=== PATIENT | female | born 1955 | race Caucasian/White ===

== ENCOUNTER → 2018-03-13 07:30 | Outpatient (CLI) | payer OTHER, SELFPAY ==
[2018-03-13 08:13] LABS: Add Manual Diff / Slide Review NO; Basophils Percent Auto 0.9 % (0-2); Eosinophils Percent Auto 4.2 % (2-4); Hematocrit 40.8 % (36-46); Hemoglobin 14.4 g/dL (12.0-16.0); Lymphocytes Percent Auto 29.7 % (25-40); Mean Corpuscular HGB Conc 35.4 % (30-36); Mean Corpuscular Hemoglobin 32.4 PG (26-34); Mean Corpuscular Volume 91.7 fL (80-100); Monocytes Percent Auto 8.2 % (3-14); Neutrophils Absolute Auto 3900 /uL (3000-5900); Platelet Count 284 X10^3/uL (150-400); Red Blood Cell Count 4.45 X10^6/uL (4.0-5.2); Red Cell Distribution Width 13.4 % (11.6-14.8); White Blood Cell Count 6.8 X10^3/uL (4.5-11.0)
[2018-03-13 08:30] LABS: Alanine Aminotransferase 33 IU/L (9-52); Albumin 4.3 g/dL (3.5-5.0); Albumin Globulin Ratio 1.3 (1.0-2.8); Alkaline Phosphatase 47 U/L (38-126); Aspartate Aminotransferase 26 IU/L (14-36); BUN Creatinine Ratio 28.6 (6-22); Bilirubin Total 0.8 mg/dL (0.2-1.3); Blood Urea Nitrogen 20 mg/dL (7-17); Calcium 9.5 mg/dL (8.4-10.2); Carbon Dioxide 28 mmol/L (22-32); Chloride 101 mmol/L (98-107); Cholesterol 241 mg/dL (140-199); Estimated Glomerular Filt Rate > 60.0 mL/min (>60); Globulin 3.2 g/dL (1.7-4.1); Glucose 96 mg/dL (80-110); HDL Cholesterol 58 mg/dL (40-60); HEMOLYSIS < 15 (0-50); LDL Cholesterol Calculated 157 mg/dL (<100); Potassium 4.2 mmol/L (3.4-5.1); Sodium 137 mmol/L (137-145); Total Protein 7.5 g/dL (6.3-8.2); Triglycerides 130 mg/dL (35-150)
== END ==
PROVIDERS: PCP Physician Assistant; Visit Provider Physician Assistant
DX: E03.9 Hypothyroidism, unspecified (principal); I10 Essential (primary) hypertension; E78.5 Hyperlipidemia, unspecified
CPT/HCPCS: 36415; 80053; 80061; 84443; 85025

== ENCOUNTER → 2018-07-08 17:56 | Outpatient (CLI) | payer OTHER, SELFPAY ==
--- NOTE | 2018-07-08 17:59 | DI.MRI.S_ITS ---
PROCEDURE: MR HAND RT WO CON INDICATIONS: Palpable lump in the 3rd digit of the right hand. TECHNIQUE: Noncontrast coronal T1 spin echo and T2 fast spin echo with fat saturation, axial proton density fast spin echo and T2 fast spin echo with fat saturation, sagittal T1 spin echo and STIR through the hand and fingers. COMPARISON: None. FINDINGS: Image quality: There is heterogeneous fat saturation. Bones: Visualized osseous structures demonstrate normal overall bone marrow signal. The bones are normally aligned, without marrow contusions or fractures. No discrete bony erosions. No joint effusions. Soft tissues: Within the dorsal aspect of the proximal 3rd digit, there is a lobulated subcutaneous soft tissue mass demonstrating T1 hypointensity and T2 hyperintensity. This measures approximately 2.3 cm in longitudinal dimension by 2.5 x 1.0 cm in transverse dimension. There are small internal linear septations. The mass is contiguous with the extensor tendon which appears attenuated at the level of the mass. There is displacement of adjacent vascular structures. Slightly prominent feeding vessels are noted. Visualized muscles demonstrate normal bulk and internal signal. IMPRESSION: 1. Lobulated subcutaneous soft tissue mass demonstrated dorsally and in the proximal 3rd digit. Given its T2 hyperintensity, the finding is suggestive of a hemangioma. The differential also includes a ganglion cyst although this is less likely given the mildly prominent feeding vessels. Given its location in association with the extensor tendon, the differential also includes a giant cell tumor of the tendon sheath although this is also less likely given the T2 hyperintensity. Consider further evaluation with contrast-enhanced images for further characterization. 2. No definite evidence of bony invasion. Dictated by: Keith Raymundo M.D. on 07/09/2018 at 9:20 Approved by: Keith Raymundo M.D. on 07/09/2018 at 9:38
== END ==
PROVIDERS: PCP Physician Assistant; Visit Provider Orthopaedic Surgery
DX: R22.31 Localized swelling, mass and lump, right upper limb (principal); M79.89 Other specified soft tissue disorders
CPT/HCPCS: 73218

== ENCOUNTER → 2018-10-27 09:45 | Outpatient (CLI) | payer OTHER, SELFPAY ==
[2018-10-27 10:42] LABS: Add Manual Diff / Slide Review NO; Basophils Absolute Auto 100 /uL (0-100); Basophils Percent Auto 1.1 % (0-2); Eosinophils Absolute Auto 300 /uL (0-450); Eosinophils Percent Auto 4.7 % (2-4); Hematocrit 42.7 % (36-46); Hemoglobin 14.4 g/dL (12.0-16.0); Lymphocytes Absolute Auto 1900 /uL (1100-4500); Lymphocytes Percent Auto 27.4 % (25-40); Mean Corpuscular HGB Conc 33.7 % (30-36); Mean Corpuscular Hemoglobin 31.3 PG (26-34); Mean Corpuscular Volume 92.7 fL (80-100); Monocytes Absolute Auto 600 /uL (0-900); Monocytes Percent Auto 8.1 % (3-14); Neutrophils Absolute Auto 4000 /uL (1500-7000); Neutrophils Percent Auto 58.7 % (50-75); Platelet Count 316 X10^3/uL (150-400); Red Cell Distribution Width 12.9 % (11.6-14.8); White Blood Cell Count 6.8 X10^3/uL (4.5-11.0)
[2018-10-27 11:03] LABS: Alanine Aminotransferase 30 IU/L (9-52); Albumin 4.3 g/dL (3.5-5.0); Albumin Globulin Ratio 1.4 (1.0-2.8); Alkaline Phosphatase 46 U/L (38-126); Aspartate Aminotransferase 22 IU/L (14-36); Bilirubin Total 0.7 mg/dL (0.2-1.3); Blood Urea Nitrogen 14 mg/dL (7-17); Calcium 9.5 mg/dL (8.4-10.2); Carbon Dioxide 29 mmol/L (22-32); Chloride 101 mmol/L (98-107); Cholesterol 232 mg/dL (140-199); Estimated Glomerular Filt Rate > 60.0 mL/min (>60); Glucose 99 mg/dL (80-110); HDL Cholesterol 48 mg/dL (40-60); HEMOLYSIS < 15 (0-50); LDL Cholesterol Calculated 154 mg/dL (<100); Potassium 4.9 mmol/L (3.4-5.1); Sodium 139 mmol/L (137-145); Total Protein 7.3 g/dL (6.3-8.2); Triglycerides 152 mg/dL (35-150)
[2018-10-27 11:32] LABS: Thyroid Stimulating Hormone 3.12 uIU/mL (0.47-4.68)
== END ==
PROVIDERS: PCP Physician Assistant; Visit Provider Physician Assistant
DX: E03.9 Hypothyroidism, unspecified (principal); E78.5 Hyperlipidemia, unspecified; I10 Essential (primary) hypertension
CPT/HCPCS: 36415; 80053; 80061; 84443; 85025

== ENCOUNTER → 2018-11-12 08:29 | Outpatient (CLI) | payer OTHER, SELFPAY ==
--- NOTE | 2018-11-12 | DI.MG.S_ITS ---
BILATERAL DIGITAL SCREENING MAMMOGRAM 3D/2D WITH CAD: 11/12/2018 CLINICAL: Routine screening. Personal history of right breast cancer. Family history of breast cancer. Comparison is made to exams dated: 09/24/2017 mammogram, 08/13/2016 mammogram, and 04/12/2015 mammogram - [facility]. There are scattered fibroglandular elements in both breasts. Current study was also evaluated with a Computer Aided Detection (CAD) system. There are benign post operative findings in the right breast. No significant masses, calcifications, or other findings are seen in either breast. There has been no significant interval change. IMPRESSION: There is no mammographic evidence of malignancy. A 1 year screening mammogram is recommended. This exam was interpreted at Station ID: [id number]. NOTE: For mammograms, a report in lay terms will be sent to the patient. Approximately 15% of breast malignancies will not be visualized mammographically. In the management of a palpable breast mass, a negative mammogram must not discourage biopsy of a clinically suspicious lesion. Electronically Signed By: Jessica corona/alisa:11/12/2018 10:41:26 letter sent: Normal Exam ACR BI-RADS Category 2: Benign Finding(s) 3342F
== END ==
PROVIDERS: PCP Physician Assistant; Visit Provider Physician Assistant
DX: Z12.31 Encounter for screening mammogram for malignant neoplasm of breast (principal); Z85.3 Personal history of malignant neoplasm of breast; Z80.3 Family history of malignant neoplasm of breast
CPT/HCPCS: 77063; 77067

== ENCOUNTER → 2019-03-10 08:03 | Outpatient (CLI) | payer OTHER, SELFPAY ==
--- NOTE | 2019-03-10 | DI.CT.S_ITS ---
PROCEDURE: CT UE RT WO CON INDICATIONS: Pain in right shoulder TECHNIQUE: Noncontrast 1-1.5 mm thick sections acquired from the acromioclavicular joint to the inferior scapula, with coronal and sagittal reformatting. COMPARISON: [facility], CR, XR SHOULDER 2+ VIEWS RIGHT, 02/20/2019, 10:58. FINDINGS: Image quality: Excellent. Bones: No definite fracture although advanced arthritic changes limits study sensitivity. There is extensive glenohumeral joint degeneration with subchondral cystic change, sclerosis and marked spurring. There is near [id number] appearance There is anatomic alignment at the AC and glenohumeral joints. Soft tissues: Lower glenohumeral joint effusion is present, which could be reactive degenerative changes. No definite rotator cuff muscle atrophy noted. No definite loose bodies. There are diffuse cervical and thoracic spondylitic changes. IMPRESSION: Severe right shoulder joint degeneration with near [id number] appearance. Glenohumeral joint effusion Dictated by: Van Sykes M.D. on 03/10/2019 at 8:48 Approved by: Van Sykes M.D. on 03/10/2019 at 8:59
== END ==
PROVIDERS: PCP Physician Assistant; Visit Provider Orthopaedic Surgery
DX: M25.511 Pain in right shoulder (principal); M19.011 Primary osteoarthritis, right shoulder; M25.411 Effusion, right shoulder
CPT/HCPCS: 73200

== ENCOUNTER → 2019-04-20 07:59 | Outpatient (CLI) | payer OTHER, SELFPAY ==
[2019-04-20 08:30] LABS: Add Manual Diff / Slide Review NO; Basophils Absolute Auto 0 /uL (0-100); Basophils Percent Auto 0.6 % (0-2); Eosinophils Absolute Auto 300 /uL (0-450); Eosinophils Percent Auto 3.5 % (2-4); Hematocrit 43.7 % (36-46); Hemoglobin 14.7 g/dL (12.0-16.0); Lymphocytes Absolute Auto 2000 /uL (1100-4500); Lymphocytes Percent Auto 24.6 % (25-40); Mean Corpuscular HGB Conc 33.6 % (30-36); Mean Corpuscular Hemoglobin 30.6 PG (26-34); Monocytes Absolute Auto 500 /uL (0-900); Monocytes Percent Auto 6.5 % (3-14); Neutrophils Absolute Auto 5400 /uL (1500-7000); Neutrophils Percent Auto 64.8 % (50-75); Platelet Count 341 X10^3/uL (150-400); Red Cell Distribution Width 13.2 % (11.6-14.8); White Blood Cell Count 8.3 X10^3/uL (4.5-11.0)
[2019-04-20 08:42] LABS: Carbon Dioxide 29 mmol/L (22-32); Chloride 103 mmol/L (98-107); HEMOLYSIS < 15 (0-50); Potassium 5.3 mmol/L (3.4-5.1); Sodium 140 mmol/L (137-145)
== END ==
PROVIDERS: Family Provider Physician Assistant; PCP Physician Assistant; Visit Provider Orthopaedic Surgery
DX: M19.011 Primary osteoarthritis, right shoulder (principal)
CPT/HCPCS: 36415; 80051; 85025

== ENCOUNTER 2019-05-07 07:29 | Inpatient (IN) | payer MEDICARE, OTHER, SELFPAY ==
[2019-04-27 09:53] VITALS: BMI 35.6
[2019-05-07] VITALS (14 sets, daily range): BP systolic 104–168; BP diastolic 53–84; PULSE 48–73; RESP 12–24; TEMP 36.3–36.6; O2SAT 93–98; BMI 34.9
--- NOTE | 2019-05-07 06:00 | DI.RAD.S_ITS ---
PROCEDURE: XR SHOULDER RT MIN 2V INDICATIONS: post op TECHNIQUE: 2 views of the shoulder were acquired. COMPARISON: Right shoulder x-ray, 02/20/2019. FINDINGS: Bones: There is right shoulder arthroplasty. The shoulder prosthesis is seen anatomic alignment. Moderate acromioclavicular joint degeneration is present. Visualized ribs appear intact. Soft tissues: Overlying postsurgical changes are noted. IMPRESSION: Right shoulder arthroplasty with prosthesis in anatomic alignment. Dictated by: Riccardo Verdin M.D. on 05/07/2019 at 17:23 Approved by: Riccardo Verdin M.D. on 05/07/2019 at 17:24
[2019-05-07] MEDS: ACETAMINOPHEN 325 MG TABLET 975 MG PO ×3 (09:05→20:24)
[2019-05-07] MEDS: PREGABALIN 75 MG CAPSULE PO (09:06)
[2019-05-07] MEDS: MELOXICAM 7.5 MG TABLET 15 MG PO (09:11)
[2019-05-07] MEDS: LACTATED RINGERS 1,000 ML 42 ML IV ×2 (09:11→12:43)
[2019-05-07] MEDS: VANCOMYCIN 1,000 MG/200 ML PIGGYBACK 200 MG IV ×2 (09:35→20:25)
[2019-05-07] MEDS: MIDAZOLAM 2 MG/2 ML VIAL IV (10:18)
[2019-05-07] MEDS: GENTAMICIN 200 MG in SODIUM CHLORIDE 0.9% 100 ML 105 ML IV (10:35)
--- NOTE | 2019-05-07 10:50 | SUR.PREOP ---
Block start time [1018] . Monitoring initiated and maintained throughout procedure. Oxygen and medications given per anesthesiologist instructions. Patient remained stable throughout procedure, no adverse reactions noted. Block end time [1030].
--- NOTE | 2019-05-07 11:29 | SUR.OPER ---
Beach chair on padded OR bed. Head on gel donut secured with tape over gauze. Non-operative arm secured <90 degrees abduction on padded arm board. Pillow under knees. Safety belt at thigh. Cloth tape over blanket over lower legs.
[2019-05-07] MEDS: LIDOCAINE 1% W/EPI INJ 20 ML INJ (11:35)
--- NOTE | 2019-05-07 12:59 | PM.PREOP ---
Pre-operative Note Interval Note History & Physical reviewed/Exam performed by Physician: Yes Changes to H&P: No
--- NOTE | 2019-05-07 13:03 | PM.OP.1 ---
Operative Date/Time/Diagnoses Date of procedure: 05/07/19 Time of procedure: 10:30 Pre-op diagnosis: End-stage arthritis right glenohumeral joint Post-op diagnosis: same Procedure & Clinicians Procedure: Right total shoulder arthroplasty Same procedure as scheduled: Yes Indications: End-stage arthritis right shoulder joint Surgeon: Jesus Joseph Body Specialist: Vandana Stack Anesthesia Type: General and Peripheral nerve block Operative Notes Findings: Significant arthritic changes to the glenohumeral joints with complete loss of cartilage to both areas of the humeral head and glenoid. Significant synovitis to the biceps tendon with a lot of phlegm a maria g tissue around the biceps tendon in the bicipital groove and more distal. No sign of any rotator cuff tears. Degenerative changes to the labrum. Large osteophytes mainly inferiorly and to a lesser extent anteriorly. Closure Type: primary Specimen(s): none sent Prosthetic devices, grafts, tissues, transplants, or devices: Arthrex total shoulder arthroplasty Medium glenoid 6 mm stem 48 x 19 humeral head Applied: implant(s) Estimated Blood Loss (mL): 100 Blood products transfused: none Procedure in detail: On date of service, Patient was met in the holding area. The operative site was signed and witnessed by the OR staff. The surgeries once again discussed with the patient and any remaining questions they had were answered fully. Patient was taken back to the operating theater and placed on the operating table in a supine position. Great care was taken to ensure that all bony prominences were properly padded. Patient was then placed into the beach chair position. The head and neck were properly positioned and secured. A timeout was performed verifying patient's name, procedure, and the operative site. The upper extremity was then prepped and draped in the normal sterile fashion. Previously, the bony anatomy and incision were marked out as well as injected with Marcaine with epinephrine. A deltopectoral approach was performed. 10 blade was used to incise the skin and fascial tissue. A deep knife was used to continue sharp dissection until the cephalic vein was visualized. The cephalic vein was dissected free allowing us to expose the deltopectoral interval. This interval was then developed. A Barrow elevator was used to free up the deltoid of any scarring both superficially as well as deeply. The vein and the deltoid were taken laterally while the pectoralis was taken medially. This gave us good visualization of the strap muscles. The clavipectoral fascia was removed and the strap muscles were then retracted medially with the pectoralis. This gave us stabilization of the subscapularis. The circumflex vessels were ligated and the subscapularis was sharply excised off the lesser tuberosity and then tagged. Once the subscapularis was released we're able to dislocate the shoulder. Patient had end-stage arthritic changes to the humeral head as well as the glenoid with large osteophytes anterior inferiorly as well as posteriorly. A Ronger was then used to remove the osteophytes. Next, cutting guide was placed and a saw was used to remove the humeral head. Once the head was removed it was templated. A starting awl was then used to find the canal and then the humerus was reamed and broached. Trial stem was placed and a variety of heads were trialed. A protector placed for the osteotomy was then placed and and we turned our attention back to the subscapularis as well as the glenoid. The subscapularis was freed up and a 360? fashion. The degenerative anterior and inferior capsular tissue was removed. This was followed by removing the degenerative labral tissue from around the glenoid as well as the biceps insertion. This gave us good visualization of the glenoid. Glenoid trials were used until we found the appropriate fit and curvature. Next the center hole was drilled followed by reaming of the glenoid. The wound was copiously irrigated after reaming. Next the pegs were drilled and a trial glenoid was impacted into place. Once we were satisfied with the preparation of the glenoid, the final component was cemented into place. This was followed by impaction. We Return to our attention back to the humerus. The protector plate was removed and heads were trialed once again and so we found the appropriate fit. The trials were removed and bone tunnels were made into the humeral neck. #2 FiberWire were passed through the bone tunnels for eventual subscapularis repair. The final stem and head were impacted into place and the shoulder was reduced. It was taken through range of motion and was felt to be stable in both posterior translation as well as external and internal rotation with abduction. The subscapularis was repaired back to the lesser tuberosity through the bone tunnels. This was then reinforced with soft tissue repair. Part of the rotator interval was then closed. A drain was placed and the rest of the wound was closed in a layered fashion. The shoulder was then cleaned dried and dressed and the patient was taken to the PACU in stable condition. Patient will follow our postoperative protocol for total shoulder arthroplasty. Complications: none Condition: stable Disposition: PACU Plan for aftercare: Patient will follow our postoperative protocol for total shoulder arthroplasty
--- NOTE | 2019-05-07 15:45 | PC.NURSE ---
Ortho: Recieved 64 y/o f from pacu. S/p rt total shoulder, sling/immobilizer is in place. No pain, has had a block and has strong rt ulna pulse but weaker radial pulse. 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 MD Joseph is aware of pulses and finger discoloration. Can move fingers very sl. Brisk cap refill. Dressing is dry/intact, hemovac compressed and drains red fluid, has no pain at this time due to block. O2 sats drift down to 90% on ra and O2 at 2L was applied by pacu nurse. Has not voided since surgery. Pt knows to call for assist and does have call light w/in reach. Has family and friend who are staying with her. Denies any concrns at this time.
--- NOTE | 2019-05-07 15:51 | PT.IIE ---
Current Diagnoses Primary osteoarthritis, right shoulder (05/07/19) Pain in right shoulder (05/07/19) Surgery Performed Operation Date: 05/07/19 10:00 Actual Procedures p Total Shoulder Arthroplasty(Right) - Jesus Joseph MD Surgical History (Last Updated 04/27/19 @ 10:23 by Lizy Gonzalez RN) History of mandibular surgery (Acute) Hx of bilateral cataract extraction (Acute) History of tonsillectomy Status post appendectomy Medical History (Last Updated 04/27/19 @ 10:22 by Lizy Gonzalez RN) Acid reflux (Acute) Back pain (Acute) Chest pain (Acute) Depression (Acute) Dislocation of neck (Acute) Easy bruisability (Acute) Edema (Acute) Elevated cholesterol (Acute) Endometrial polyp (Acute) Former smoker (Acute) HTN (hypertension) (Acute) Herniated disc (Acute) Hypothyroidism (Acute) Retinal detachment (Acute ~04/2008) Scoliosis (Acute) Spinal stenosis (Acute) Breast cancer, right (Acute ~2003) Primary osteoarthritis, right shoulder (Acute) Physical Therapy Inpatient Evaluation/Re-Eval M1 PT/OT-IP Prior Functional Status Start: 05/07/19 17:02 Freq: NEEDED Status: Active Protocol: Document 05/07/19 15:51 AB (Rec: 05/07/19 17:25 AB [id number]) Medical Review Prior Functional Status Medical History Reviewed Yes Communication able to make needs known Mobility and Gait pt stated that she is independent with all mobilities and ambulation without AD Social History Household Members spouse Living Arrangements House Number of Floors (Floors) Two Floors Number of Stairs To Enter/Railing? 5 steps to enter with bilateral wide rails; can only hold on to one rail at a time pt will stay on the main level of the house Home Environment Standard Height Toilet Tub/Shower Home Equipment Straight Cane Shower Seat without Backrest Hand Held Shower Grab Bars In Shower Employment Status Retired Additional Social History Comment pt will also have her friend to assist her M2 PT-IP Current Condition Start: 05/07/19 17:02 Freq: NEEDED Status: Active Protocol: Document 05/07/19 15:51 AB (Rec: 05/07/19 17:25 AB [id number]) Physical Therapy Current Condition Current Condition Evaluation Date 05/07/19 Treatment Diagnosis s/p R TSA; difficulty in walking Onset Date 05/07/19 Precautions Shoulder Precautions Sling PROM Internal Rotation to Body No External Rotation No Abduction Forward Flexion to 90 degrees Pendulums Weight Bearing Status Weight Bearing Status Non-Weight Bearing Allowed Weight Bearing Amount (enter % NWB RUE or #) (%) M3 PT-IP Subjective Start: 05/07/19 17:02 Freq: NEEDED Status: Active Protocol: Document 05/07/19 15:51 AB (Rec: 05/07/19 17:25 AB [id number]) Subjective Physical Therapy Visit Type Type Initial Evaluation Visit Start Time 15:51 Visit Stop Time 16:46 Total Visit Minutes 55 Number of ICE HANDLER Visits 0 Physical Therapy Visit Comments Patient Comments pt agreeable to do PT; pt's spouse and friend present Therapy Pain Assessment Pain Present Pain Present Denied Pain M4 PT-IP Mobility and Gait Start: 05/07/19 17:02 Freq: NEEDED Status: Active Protocol: Document 05/07/19 15:51 AB (Rec: 05/07/19 17:25 AB [id number]) PT-Bed Mobility Assessment Supine to Sit Supine to Sit Standby Assistance Sit to Supine Sit to Supine Standby Assistance Scooting Scooting to Edge of Bed Standby Assistance PT-Transfer Assessment Sit to and From Stand Sit to and from Stand Contact Guard Assistance Equipment Transfer Assistive Device Gait Belt Straight Cane Orthotic/Prosthetic Devices or Brace: Yes Transfers Transfer Destination Toilet Transfer Technique pt ambulated using SPC Transfer Ability Level of Assist Contact Guard Assistance Comments Mobility Comments BP supine: 137/68. pt completed supine to sit SBA. c/o slight dizziness. BP 120/ 58. pt sat on EOB SBA. Caregiver training initiated for sling management. adjusted pt's sling and educated pt's spouse and friend on how to don/doff sling. educated pt and caregivers regarding precautions and elbow/hand exercises. pt's dizziness did not worsen. BP: 117/55 prior to standing. pt ambulated in room using SPC CGA. pt requested to go back to bed. completed sit to supine SBA. upon laying down, pt stated that she has to use the toilet . pt got up again SBA. instructed spouse to assist pt . Spouse was able to put safety belt on and assist pt with ambulation. pt ambulated from the toilet to the sink using SPC CGA and was able to maintain standing SBA while doing handwashing. pt ambulated from the sink to the bed without AD CGA. pt completed sit to supine SBA. positioned pt in bed. call light and table placed within reach. Gait Assessment Gait Gait Assistance Required: Contact Guard Assist Distance (Feet) 40 Able to Maintain Weight Bearing Status Yes During Gait Assistive Devices Assistive Device Gait Belt Straight Cane Orthotic/Prosthetic Devices or Brace: Yes Gait Deviations General Gait Pattern Decreased Stride Length Decreased Feet Clearance Factors Limiting Gait Function Factors Limiting Gait Function Decreased Activity Tolerance Decreased Sensation Limited Range of Motion PT-Balance Assessment Sitting Balance and Reactions Static Sitting Balance Ability Good Dynamic Sitting Balance Ability Good Standing Balance and Reactions Static Standing Balance Ability Good Dynamic Standing Balance Ability Fair Device Used SPC M5 PT-IP Objective Assessments Start: 05/07/19 17:02 Freq: NEEDED Status: Active Protocol: Document 05/07/19 15:51 AB (Rec: 05/07/19 17:25 AB [id number]) Orientation Orientation/Cognition Level of Alertness Alert Orientation Name Age Birthday Month Date Year Day of Week Place Situation Language Function Ability No Deficits Noted Safety Awareness Decreased Safety Awareness Memory Description No Deficits Noted Gross Range of Motion Upper Extremity ROM Assessment Right Impaired Lower Extremity ROM Assessment Within Functional Limits Strength Upper Extremity Strength Assessment Right Impaired Lower Extremity Strength Assessment Within Functional Limits Comments Strength Comments RUE on a sling Coordination Assessment Gross Coordination Gross Coordination WNL Sensation Assessment Sensation Gross Sensation Right UE Impaired Sensation Description Numbness Comments Sensation Comments stated that RUE still numb; pt has slight finger and wrist flexion control but still does not have elbow control. M6 PT-IP Treatment Start: 05/07/19 17:02 Freq: NEEDED Status: Active Protocol: Document 05/07/19 15:51 AB (Rec: 05/07/19 17:25 AB [id number]) Physical Therapy Treatment Exercises Exercises Elbow Flexion/Extension Wrist ROM Hand ROM Education Education Provided Precautions Weight Bearing Status Post-Op Packet Safety Brace Education Donning [place] Patient Caregiver Other Treatments Other Treatment Performed caregiver training initiated for sling management, elbow/ hand/wrist exercises, shoulder precautions and how to assist pt with mobility. M7 PT-IP Assessment and Plan Start: 05/07/19 17:02 Freq: NEEDED Status: Active Protocol: Document 05/07/19 15:51 AB (Rec: 05/07/19 17:25 AB [id number]) PT Summary Assessment and Plan Potential Rehabilitation Potential Good Status of Condition at Evaluation Evolving Summary Impairments Pain ROM Strength Balance Coordination Sensation Tone Bed Mobility Transfers Gait Activity Tolerance Assessment Summary pt requiring CGA with mobility . requires assist with sling management. pt plans to go home and spouse and friend will be able to assist pt. will have to conduct further caregiver training tomorrow. will also address pendulum exercises with pt which was not conducted today due to pt still have RUE numbness and does not have much motor control on RUE. stair training will also be completed prior to d/c. will continue to assess. Goals Bed Mobility Goal Independent Transfer Goal Independent Gait Goal Independent Gait Distance 200 Other Goals up/down 5 steps L rail ascending SBA Days to Meet Goals 3 Frequency of Treatment Frequency Of Treatment Twice a Day Treatment Plan Physical Therapy Treatment Plan Bed Mobility Training Transfer Training Gait Training Therapeutic Exercise Balance Retraining Post Op Education Discharge Planning Hot or Cold Pack Neuromuscular Re-ed Coordination Retraining Manual Therapy Other Recommendations and Next Treatment caregiver training, sling Focus management, pendulum and stair training Recommendations To Nursing Amount of Assist Needed 1 Person Assist Discharge Recommendations PT Discharge Recommendations Home with Assistance Outpatient PT
--- NOTE | 2019-05-07 19:22 | PC.NURSE ---
Addendum entered by Van Dior R.N. 05/07/19 22:35: @1945 spoke with on-call physician Sesar Alvarado regarding: pt was received onto unit postoperatively with no IV fluids and on 2L O2 via NC. No fluids or O2 orders in chart. Confirmed verbal orders via telephone no IV fluids at this time and order for oxygen delivery to maintain SaO2 +or>92% Original Note: Shift Summary 05/07/19 [id number] PO Day 0 for R TSA. h/o Right shoulder arthritis. Hemovac drain in place. Using ice pack. Pt denies pain and lack of sensation in RUE, reports due to nerve block still in effect. Given scheduled Tylenol and educated on pain medications. Applying ice. Ambulating in room with cane. Compliant with SCD use. Aquacel dressing on R shoulder CDI. Able to move fingers and full sensation intact to hand and fingers.
[2019-05-07] MEDS: SODIUM CHLORIDE 0.9% FLUSH 10 ML IV (20:32)
[2019-05-07] MEDS: diphenhydrAMINE 50 MG/ML VIAL 25 MG IV (22:17)
--- NOTE | 2019-05-07 22:37 | PC.NURSE ---
Pt's female friend calls this commercial insurance underwriter into pt's room. Pt and friend, Brittani, shows this commercial insurance underwriter two raised slightly pink hives on pt's left forearm. Pt denies itching. No respiratory symptoms stated or observed. No other raised lesions noted on pt's trunk. Vanco was stopped and Dr. Alvarado notified by telephone. Pt's iv failed so after restarting pt's iv, administered 25 mg iv benadryl and resumed vancomycin infusion as per Dr. Alvarado's telephone order. Rate was decreased to 75 cc's/hr as pt has reported some tenderness with infusion to left forearm iv site. This current site draws blood briskly and flushes easily. No further concerns or complaints verbalized. Elevation of lesions has improved while this commercial insurance underwriter in pt's room. Per Dr. Alvraado's direction, 05/08 0800 dose of vancomycin was dc'd pending discussion with rounding provider. This commercial insurance underwriter unable to put med on hold as requires resume date.
[2019-05-08 00:40] VITALS: BP 118/69; PULSE 67; RESP 16; TEMP 36.6; O2SAT 96
[2019-05-08 05:08] VITALS: BP 146/83; PULSE 71; RESP 16; TEMP 36.3; O2SAT 95
[2019-05-08 05:51] LABS: Hematocrit 38.1 % (36-46); Hemoglobin 12.9 g/dL (12.0-16.0); Mean Corpuscular HGB Conc 33.9 % (30-36); Mean Corpuscular Hemoglobin 30.7 PG (26-34); Mean Corpuscular Volume 90.5 fL (80-100); Platelet Count 298 X10^3/uL (150-400); Red Blood Cell Count 4.21 X10^6/uL (4.0-5.2); Red Cell Distribution Width 13.2 % (11.6-14.8); White Blood Cell Count 11.5 X10^3/uL (4.5-11.0)
[2019-05-08] MEDS: OXYCODONE IR 5 MG TABLET PO ×2 (07:00→11:39)
[2019-05-08] MEDS: LEVOTHYROXINE 112 MCG TABLET PO (07:12)
[2019-05-08 08:00] VITALS: BP 120/66; PULSE 62; RESP 16; TEMP 36.3; O2SAT 95
[2019-05-08] MEDS: DOCUSATE 100 MG CAPSULE PO (08:54)
[2019-05-08] MEDS: CHOLECALCIFEROL (VITAMIN D3) 1,000 UNIT TABLET 1000 UNIT PO (08:54)
[2019-05-08] MEDS: CYANOCOBALAMIN (VITAMIN B-12) 500 MCG TABLET 1000 MCG PO (08:54)
[2019-05-08] MEDS: ACETAMINOPHEN 325 MG TABLET 975 MG PO (08:54)
[2019-05-08] MEDS: ASPIRIN EC 81 MG TABLET PO (08:55)
[2019-05-08] MEDS: NAPROXEN 250 MG TABLET PO (08:55)
[2019-05-08] MEDS: PANTOPRAZOLE 40 MG TABLET PO (08:55)
[2019-05-08] MEDS: MULTIVITAMIN 1 TABLET 1 TAB PO (08:55)
[2019-05-08] MEDS: ATENOLOL 50 MG TABLET 100 MG PO (08:55)
[2019-05-08] MEDS: SODIUM CHLORIDE 0.9% FLUSH 10 ML IV (08:56)
--- NOTE | 2019-05-08 09:18 | PM.DS.1 ---
History of Present Illness Date Patient Seen: 05/08/19 Time Patient Seen: 09:25 Chief complaint: [id number] Narrative: Please see HPI recorded in chart. Discharge Providers Date of admission: 05/07/19 07:29 Discharge Date: 05/08/19 Primary care physician: Lyndsey Jimenez PA-C Consults: 05/07/19 13:00 Consult to Discharge Planning Routine Comment: Consult to Physical Therapy Evaluate & Treat Comment: Physician Instructions: Evaluate and Treat Consult to Respiratory Therapy Evaluate & Treat Comment: Physician Instructions: Evaluate and treat 05/08/19 08:04 Consult to Occupational Therapy Evaluate & Treat Comment: Right total shoulder Physician Instructions: Evaluate and treat Discharge provider: Vandana Stack PA-C Summary Discharge Diagnosis: s/p right total shoulder arthroplasty Hospital Course: Patient has long standing history of end stage degenerative changes in the glenohumeral joint. On date of service, Patient was met in the holding area. The operative site was signed and witnessed by the OR staff. The surgery was once again discussed with the patient and any remaining questions they had were answered fully. After obtaining informed consent patient was taken to the operating room and underwent a right total should arthroplasty with Dr. Joseph on 05/07/19 which she tolerated with no complications. POD#1 regional block has worn off and her pain is being well controlled with oxycodone and tylenol. She has mobilized about the room and is voiding independently. Drain was removed. She is tolerating a diet. She has a close friend who will be carbon capture power plant operator after surgery. She will work with physical therapy and occupational therapy prior to discharge. She will be discharged home with supply of Oxycodone and Vistaril. She is medically stable to discharge to home. Status at Discharge Cognitive/behavioral status at discharge: oriented Overall status at discharge: patient is progressing back to baseline Exam Vital Signs (past 8 hours): - 05/08/19 05:08 05/08/19 08:00 Temperature 97.3 F L 97.4 F L Pulse Rate 71 62 Respiratory Rate 16 16 Blood Pressure 146/83 H 120/66 Pulse Oximetry 95 95 Oxygen Delivery Method Nasal Cannula Oxygen Flow Rate 3 Narrative Exam Narrative: 64 year old female resting comfortably in chair, alert and oriented in no acute distress. Patient in sling, hemovac in place with 60ml output since surgery. Dressing in place over right shoulder is CDI. Intact motor function in wrist and hand. Sensation intact to light touch. 2+ radial pulse. Calves soft, compressible. Objective Labs Result Diagrams: 05/08/19 05:16 Labs: Laboratory Results - last 24 hr 05/08/19 05:16 WBC 11.5 H RBC 4.21 Hgb 12.9 Hct 38.1 MCV 90.5 MCH 30.7 MCHC 33.9 RDW 13.2 Plt Count 298 Discharge Plan Discharge Plan Patient Disposition: Home Discharge comment: Discharge to home today if cleared by PT/OT Discharge Med Rec/Prescriptions Prescriptions: New acetaminophen 325 mg Tablet 975 mg PO TID Qty: 60 RF: 0 docusate sodium [DOK] 100 mg Capsule 100 mg PO BID Qty: 60 RF: 0 oxycodone 5 mg Tablet 5 mg PO Q4-6H PRN (Reason: Pain, Moderate (4-6)) Qty: 60 RF: 0 hydroxyzine HCl 25 mg tablet 25 mg PO TID-QID PRN (Reason: spasms) Qty: 40 RF: 0 Continued cyanocobalamin (vitamin B-12) 1,000 MCG tablet extended release 1,000 mcg PO DAILY Qty: 0 RF: 0 aspirin 81 MG tablet,delayed release (DR/EC) 81 mg PO QDAY Qty: 0 RF: 0 cholecalciferol (vitamin D3) [Vitamin D3] 2,000 UNIT tablet 1 tab PO QDAY Qty: 0 RF: 0 multivitamin [Multiple Vitamins] 1 EACH tablet 1 tab PO QDAY Qty: 0 RF: 0 atenolol 100 MG tablet 100 mg PO QDAY Qty: 90 RF: 0 levothyroxine [Synthroid] 112 MCG tablet 112 mcg PO QAM Qty: 90 RF: 0 melatonin 5 mg Capsule 5 mg PO BEDTIME PRN (Reason: Sleep) RF: 0 naproxen sodium [Aleve] 220 mg Capsule 220 mg PO Q OTHER DAY RF: 0 omeprazole 40 MG capsule,delayed release(DR/EC) 40 mg PO QDAY PRN (Reason: Acid Reflux) RF: 0 Follow up/Referrals: Jesus Joseph MD [Physician] - Provider Discharge Instructions Diet: Diet as Tolerated Activity: Please leave sling in place, may be removed for hygiene or physical therapy. Cold/Heat Therapy: Ice packs as needed. Skin/Wound/Dressing Care Report to your healthcare provider any signs of infection, such as:: chills, fever, night sweats, unusual drainage and unusual redness Dressing: Please leave dressing in place, it will be removed at post operative visit. Notify the office if dressing becomes saturated. Visit Report/Discharge Packet Instructions: DI for Constipation, How to Prevent Falls, DI for Shoulder Replacement Discharge Data Primary Care Provider: Lyndsey Jimenez Attending Provider: Jesus Joseph Admit Date/Time: 05/07/19 07:29 Quality VTE Deep Vein Thrombosis/Pulmonary Embolism Present on Admission: No
--- NOTE | 2019-05-08 11:27 | PT.IPTN ---
Current Diagnoses Primary osteoarthritis, right shoulder (05/07/19) Pain in right shoulder (05/07/19) Surgery Performed Operation Date: 05/07/19 10:00 Actual Procedures p Total Shoulder Arthroplasty(Right) - Jesus Joseph MD Physical Therapy Treatment Note M2 PT-IP Current Condition Start: 05/07/19 17:02 Freq: NEEDED Status: Active Protocol: Document 05/07/19 15:51 AB (Rec: 05/07/19 17:25 AB [id number]) Physical Therapy Current Condition Current Condition Evaluation Date 05/07/19 Treatment Diagnosis s/p R TSA; difficulty in walking Onset Date 05/07/19 Precautions Shoulder Precautions Sling PROM Internal Rotation to Body No External Rotation No Abduction Forward Flexion to 90 degrees Pendulums Weight Bearing Status Weight Bearing Status Non-Weight Bearing Allowed Weight Bearing Amount (enter % NWB RUE or #) (%) M3 PT-IP Subjective Start: 05/07/19 17:02 Freq: NEEDED Status: Active Protocol: Document 05/08/19 10:25 GGD (Rec: 05/08/19 11:27 GGD [id number]) Subjective Physical Therapy Visit Type Type Treatment Note Visit Start Time 10:00 Visit Stop Time 10:25 Total Visit Minutes 25 Number of BIOSECURITY OFFICER Visits 1 Physical Therapy Visit Comments Patient Comments Pt willing to work with pt. M4 PT-IP Mobility and Gait Start: 05/07/19 17:02 Freq: NEEDED Status: Active Protocol: Document 05/08/19 10:25 GGD (Rec: 05/08/19 11:27 GGD [id number]) PT-Transfer Assessment Sit to and From Stand Sit to and from Stand Standby Assistance Equipment Transfer Assistive Device None Gait Belt Orthotic/Prosthetic Devices or Brace: Yes Transfers Transfer Destination Chair Toilet Transfer Ability Level of Assist Contact Guard Assistance Gait Assessment Gait Gait Assistance Required: Standby Assistance Contact Guard Assist Distance (Feet) 250 Able to Maintain Weight Bearing Status Yes During Gait Assistive Devices Assistive Device None Gait Belt Orthotic/Prosthetic Devices or Brace: Yes Gait Deviations General Gait Pattern Decreased Stride Length Decreased Feet Clearance Factors Limiting Gait Function Factors Limiting Gait Function Decreased Activity Tolerance Decreased Sensation Limited Range of Motion Stair Climbing Assessment Evaluation Level of Assist On Stairs Standby Assistance Devices Stair Climbing Assistive Devices Left Railing Technique/Endurance Stair Climbing Direction Ascend and Descend Stair Climbing Technique Step to Step Number of Steps Climbed 3 Stair Climbing Set # Repetitions (reps) 2 M5 PT-IP Objective Assessments Start: 05/07/19 17:02 Freq: NEEDED Status: Active Protocol: Document 05/07/19 15:51 AB (Rec: 05/07/19 17:25 AB [id number]) Orientation Orientation/Cognition Level of Alertness Alert Orientation Name Age Birthday Month Date Year Day of Week Place Situation Language Function Ability No Deficits Noted Safety Awareness Decreased Safety Awareness Memory Description No Deficits Noted Gross Range of Motion Upper Extremity ROM Assessment Right Impaired Lower Extremity ROM Assessment Within Functional Limits Strength Upper Extremity Strength Assessment Right Impaired Lower Extremity Strength Assessment Within Functional Limits Comments Strength Comments RUE on a sling Coordination Assessment Gross Coordination Gross Coordination WNL Sensation Assessment Sensation Gross Sensation Right UE Impaired Sensation Description Numbness Comments Sensation Comments stated that RUE still numb; pt has slight finger and wrist flexion control but still does not have elbow control. M6 PT-IP Treatment Start: 05/07/19 17:02 Freq: NEEDED Status: Active Protocol: Document 05/08/19 10:25 GGD (Rec: 05/08/19 11:27 GGD [id number]) Physical Therapy Treatment Exercises Exercises Shoulder Pendulums Elbow Flexion/Extension Wrist ROM Hand ROM Education Brace Education [place] Patient Caregiver M7 PT-IP Assessment and Plan Start: 05/07/19 17:02 Freq: NEEDED Status: Active Protocol: Document 05/08/19 10:25 GGD (Rec: 05/08/19 11:27 GGD [id number]) PT Summary Assessment and Plan Summary Assessment Summary Pt improving with mobility. She was safe with gait without AD. She had no LOB with stair mobility. She is safe for home D/C when medically stable . Frequency of Treatment Frequency Of Treatment Twice a Day Treatment Plan Physical Therapy Treatment Plan Bed Mobility Training Transfer Training Gait Training Therapeutic Exercise Balance Retraining Post Op Education Discharge Planning Hot or Cold Pack Neuromuscular Re-ed Coordination Retraining Manual Therapy Recommendations To Nursing Amount of Assist Needed 1 Person Assist Discharge Recommendations PT Discharge Recommendations Home with Assistance Outpatient PT
--- NOTE | 2019-05-08 11:53 | PC.NURSE ---
Pending discharge: Pt feels ready to d/c home. PT/OT has seen pt and given their final instructions. Seen by hcp and recieved their instructions. Hemovac d/c intact and dressing to the shoulder is c/d/i. Wound care instructions given. Remove gauze dressing from hemovac site in 48hrs. Leave aquacel dressing in place and it will be changed at your office appointment. RX given and being filled by spouse. Reviewed final instructions for shoulder surgery, potential for constipation, correct sling placement, prevention of falls. Questions answered. Pt's friend will be staying with her as well as spouse. Cont w/poc.
--- NOTE | 2019-05-08 12:39 | OT.IP.EVAL ---
Current Diagnoses Primary osteoarthritis, right shoulder (05/07/19) Pain in right shoulder (05/07/19) Surgery Performed Operation Date: 05/07/19 10:00 Actual Procedures p Total Shoulder Arthroplasty(Right) - Jesus Joseph MD Past Medical History (Last Updated 04/27/19 @ 10:22 by Lizy Gonzalez RN) Acid reflux (Acute) Back pain (Acute) Chest pain (Acute) Depression (Acute) Dislocation of neck (Acute) Easy bruisability (Acute) Edema (Acute) Elevated cholesterol (Acute) Endometrial polyp (Acute) Former smoker (Acute) HTN (hypertension) (Acute) Herniated disc (Acute) Hypothyroidism (Acute) Retinal detachment (Acute ~04/2008) Scoliosis (Acute) Spinal stenosis (Acute) Breast cancer, right (Acute ~2003) Primary osteoarthritis, right shoulder (Acute) Surgical History (Last Updated 04/27/19 @ 10:23 by Lizy Gonzalez RN) History of mandibular surgery (Acute) Hx of bilateral cataract extraction (Acute) History of tonsillectomy Status post appendectomy Occupational Therapy Inpatient Evaluation/Re-Eval M1 PT/OT-IP Prior Functional Status Start: 05/07/19 17:02 Freq: NEEDED Status: Active Protocol: Document 05/07/19 15:51 AB (Rec: 05/07/19 17:25 AB [id number]) Medical Review Prior Functional Status Medical History Reviewed Yes Communication able to make needs known Mobility and Gait pt stated that she is independent with all mobilities and ambulation without AD Social History Household Members spouse Living Arrangements House Number of Floors (Floors) Two Floors Number of Stairs To Enter/Railing? 5 steps to enter with bilateral wide rails; can only hold on to one rail at a time pt will stay on the main level of the house Home Environment Standard Height Toilet Tub/Shower Home Equipment Straight Cane Shower Seat without Backrest Hand Held Shower Grab Bars In Shower Employment Status Retired Additional Social History Comment pt will also have her friend to assist her M1 PT/OT-IP Prior Functional Status Start: 05/08/19 12:24 Freq: NEEDED Status: Active Protocol: Document 05/08/19 12:25 CGR (Rec: 05/08/19 12:39 CGR [email or web address]) Medical Review Prior Functional Status Medical History Reviewed Yes Communication able to make needs known Mobility and Gait pt stated that she is independent with all mobilities and ambulation without AD Social History Household Members spouse Living Arrangements House Number of Floors (Floors) Two Floors Number of Stairs To Enter/Railing? 5 steps to enter with bilateral wide rails; can only hold on to one rail at a time pt will stay on the main level of the house Home Environment Standard Height Toilet Tub/Shower Home Equipment Straight Cane Shower Seat without Backrest Hand Held Shower Grab Bars In Shower Employment Status Retired Additional Social History Comment pt will also have her friend to assist her M2 OT-IP Current Condition Start: 05/08/19 12:24 Freq: Status: Active Protocol: Document 05/08/19 12:25 CGR (Rec: 05/08/19 12:39 CGR [email or web address]) Occupational Therapy Current Condition Current Condition Evaluation Date 05/08/19 Treatment Diagnosis R TSA Post Operative Precautions Shoulder Precautions Sling PROM Internal Rotation to Body No External Rotation No Abduction Forward Flexion to 90 degrees Pendulums M3 OT- IP Subjective and Pain Start: 05/08/19 12:24 Freq: Status: Active Protocol: Document 05/08/19 12:25 CGR (Rec: 05/08/19 12:39 CGR [email or web address]) OT- Subjective Occupational Therapy Visit Type Type Initial Evaluation Visit Start Time 10:15 Visit Stop Time 10:55 Total Visit Minutes 40 Occupational Therapy Visit Comments Patient Comments Can I type Watch Over Me computer? OT Pain Assessment Pain When Pain Assessed During Mobility Pain Present Pain Present Pain Reported Location right shoulder Intensity 7 Scale Used Numeric (1 - 10) M4 OT- IP ADL's Start: 05/08/19 12:24 Freq: Status: Active Protocol: Document 05/08/19 12:25 CGR (Rec: 05/08/19 12:39 CGR [email or web address]) OT ADL-Grooming Comments OT Grooming Comments States she already performed this AM OT ADL-Dressing General Eval Upper Body Dressing Ability Minimal Assistance Lower Body Dressing Ability Standby Assistance Areas Needing Assistance Retrieving/Set-up of Clothing Pull-Over Shirt Button-Up Shirt/Blouse Underpants/Brief Pants/Shorts Comments OT Dressing Comments Educated on UB dressing given shld precautions. Able to perform with minimal assist. Pt to have help at home. OT ADL-Toileting General Evaluation Toileting Ability Independent OT ADL-Bathing Comments OT Bathing Comments Not tested on this date M5 OT- IP IADL's Start: 05/08/19 12:24 Freq: Status: Active Protocol: Document 05/08/19 12:25 CGR (Rec: 05/08/19 12:39 CGR [email or web address]) OT-Instrumental Activities of Daily Living Deficits IADL Deficits Identified No Deficits Home Safety Awareness Awareness of Need for Assistance at Home Good Awareness Ability to Problem Solve Emergency Able to Problem Solve Situations Medication Management Medication Management No Deficits Identified Money Management Money Management No Deficits Identified Meal Preparation Meal Preparation No Deficits Identified Network Analyst Network Analyst No Deficits Identified M6 OT- IP Functional Cognition Start: 05/08/19 12:24 Freq: Status: Active Protocol: Document 05/08/19 12:25 CGR (Rec: 05/08/19 12:39 CGR [email or web address]) Cognitive Factors Limiting Selfcare Function Cognitive Ability Level of Alertness Alert Patient Orientation Name Age Birthday Month Date Year Day of Week Place Situation Attention Span Ability Capable of Focused Attention Capable of Sustained Attention Ability to Follow Commands Able to Follow Multi-Step Commands Memory Description No Deficits Noted Safety Awareness No Deficits Noted Problem Solving Ability No deficits Noted Executive Function Ability No Deficits Noted Abstract Thinking Ability No Deficits Noted OT- Vision and Hearing OT- Hearing Assessment OT- Hearing Assessment WFL OT- Vision Assessment Visual Acuity Glasses All The Time Visual Attentiveness WFL Occular Pursuits WFL Visual Convergence WFL Visual [place] WFL M7 OT- IP Mobility and Balance Start: 05/08/19 12:24 Freq: Status: Active Protocol: Document 05/08/19 12:25 CGR (Rec: 05/08/19 12:39 CGR [email or web address]) OT-Transfer Assessment Sit to and From Stand Sit to and from Stand Independent Transfers Transfer Ability Independent Technique Transfer Destination Chair Toilet Devices Transfer Assistive Devices None OT- Balance Assessment Sitting Balance and Reactions Static Sitting Balance Ability Normal Dynamic Sitting Balance Ability Normal Standing Balance and Reactions Static Standing Balance Ability Normal Dynamic Standing Balance Ability Normal M8 OT- IP Objective Assessments Start: 05/08/19 12:24 Freq: Status: Active Protocol: Document 05/08/19 12:25 CGR (Rec: 05/08/19 12:39 CGR [email or web address]) OT Gross Range of Motion Upper Extremity Range of Motion Assessment Right Impaired OT Strength Comments Strength Comments L grossly 4/5 OT- Coordination Assessment Upper Extremity Finger to Nose Test Right UE Impaired Finger Tapping Test Within Functional Limits OT-Muscle Tone Assessment Muscle Tone WNL Yes OT Sensation Assessment Comments Summary Comments Pt states now typical sensation to the RUE Edema Edema Present Edema Comments as expected to the RUE M9 OT- IP Assessment and Plan Start: 05/08/19 12:24 Freq: Status: Active Protocol: Document 05/08/19 12:25 CGR (Rec: 05/08/19 12:39 CGR [email or web address]) OT Summary Assessment and Plan Potential Rehabilitation Potential Excellent Analytic Complexity at Evaluation Low Summary OT Impairments Pain Range of Motion Strength Dressing Progress Towards Goals Progressing Toward Goals Assessment Summary Pt presents with declines to dressing s/p R TSA. She may benefit from continued OT services to practice with dressing and other ADLs PRN. Goals Dressing Goal Independent Bathing Goal Independent Frequency of Treatment Frequency Of Treatment Once a Day Treatment Plan OT Treatment Plan ADL Training Therapeutic Exercises Patient/Family Education Discharge Planning Discharge Recommendations OT Discharge Recommendations Home
--- NOTE | 2019-05-08 14:15 | CM.DANOTE ---
Discharge Planning/Care Management DCP: assessment: case received, EMR reviewed. Discussed case in Team Rounds. Pt is a 64 year old female who admitted yesterday for a planned R TSA. Surgeon: Dr. Joseph. Payer: [facility] PCP: Nancy Jimenez PT was ordered, the eval of yesterday was reviewed and CERTIFIED APPLIANCE SERVICE TECHNICIAN Svetlana noted that she would work again with pt and continue caregiver training with pt's and friend, both of whom would be assisting her at home. Was in a CM dept meeting right after rounds until 1330. Went to room to check in with pt. She had already left for home after the PT session. Planned for OUTPT PT. No d/c concerns were identified by the care team members. Discharge Assessment Start: 05/08/19 14:14 Freq: Status: Active Protocol: Document 05/08/19 14:14 ITV (Rec: 05/08/19 14:15 ITV [id number]) Discharge Planning Assessment Advance Directives? Yes History Provided By Medical Record Prior Living Arrangements House Household Members spouse Is patient alert and oriented? Yes Review Status In Process Pre-Anesthesia Assessment Start: 04/20/19 12:53 Freq: Status: Complete Protocol: Document 04/27/19 09:53 CAB (Rec: 04/20/19 13:00 [facility] [id number]) Pre-Anesthesia Assessment Patient Also Known As (LIBBY Gustafson Patient Information Reviewed Via Phone Assessment Assessment Completed With Patient Diagnostic Results CBC Electrolytes Primary Care Provider Lyndsey Jimenez Medical Clearance Received Yes Seen Specialist in Last 12 Months Yes Specialist Seen Orthopedist Comment Pre-op/clearance 04/27/19 scanned to record Primary Language Lao Freight Solicitor Required No Height 170.18 cm Weight 103.419 kg Body Mass Index (BMI) 35.6 Hearing Ability Normal Visual Assist Glasses Dentition Type Teeth, Natural Present Teeth, Missing Barriers to Learning None 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 Hx Anesthesia Reactions No Hx Family Anesthesia Reaction No Hx Malignant Hyperthermia No Hx Blood Transfusions No Anesthesia Review Requested No Program Writer No alcohol intake current alcohol intake frequency 0-2 drinks per day Smoking Status Former smoker Tobacco type cigarettes how long ago did patient quit smoking Quit 1969 Substance Use Type does not use Pain Present Pain Reported Musculoskeletal Symptoms Back Pain Joint Pain Limited Range of Motion History of Falling (Recent or History of No ) Patient is completely paralyzed or No completely immobile Mental Status Oriented to own ability Is patient on oxygen? No Does patient have [place]/SOB Yes: Pt states related to weight gain Hx Sleep Apnea No Currently Taking a Beta Tanisha Yes: Atenolol Can You Climb a Flight of Stairs Without No SOB Hx Chest Pain Yes: Currently being worked up by PCP Hx SOB Yes: Pt states related to weight gain Hx Syncope or Dizziness No Anti-Coagulant Therapy No Has a Infant Nanny No Cardiac Testing Yes: Stress test 04/08/19 scanned to record Hx Pacemaker/ICD No Pacemaker Rep Required? No Cardiac Clearance Received Not Applicable Comment PCP clearance scanned to record Diet Type At Home Regular dysphagia No Bladder Pattern Incontinent, Stress Nocturia Urinary Catheter Present No Hx Urinary Self Catheterization No Diabetes No Patient No Lactating No Hx Drug Resistant Organism No Presence of External or Internal Medical Yes: Bilateral eye lens, Devices silicone ring around right eye Have you traveled outside the [facility] in the last 30 days? Marital Status Lives With spouse Prior Living Arrangements House Number of Floors (Floors) Two Floors Support System Friend(s) Spouse Does the Patient Have Assistance After Yes Surgery Patient Discharge Plan Description Return Home Comment Pt advised overnight length of stay per surgeon's office Feels Safe in Current Environment Yes Been Physically Hurt or Threatened By a No Person in Current Environment Do you have thoughts of harming yourself None or others? Are you currently considering suicide? No Do you have a plan to hurt yourself or No Plan others? Do You Have Any Spiritual Beliefs That No May Affect Your HC Choices? Do You Have Any Cultural Practices That No May Affect Your HC Choices? Spiritual Referral None Who Can We Speak to About Patient's Care Family, friends Identifying Code for Release of Patient Declines to issue Information Health Care Proxy/Next of Kin Juan Diego ()Brittani (friend) Health Care Proxy Phone Number Juan Diego: [phone] Brittani: Emergency Contact Name Juan Diego ()Brittani (friend) Emergency Contact Phone Number Juan Diego: [phone] Brittani: [phone] Advance Directives? Yes: Pt currently working on Requested Patient Bring Advanced Yes Directives DOS PAC Instructions Do not shave/clip surgical site Durable medical equipment Medications to take/avoid Nasal antibiotic No ETOH/petroleum product on skin DOS NPO Post-op transportation Pre-surgical wash Sturdy shoes/comfortable clothes Do not bring valuables and remove jewelry
--- NOTE | 2019-05-08 14:43 | PC.NURSE ---
Discharge: Pt d/c home via auto with friend. No concerns expressed.
== END 2019-05-08 13:15 | disposition home or self-care (01) | DRG 483 ==
PROVIDERS: Admitting Provider Orthopaedic Surgery; Family Provider Physician Assistant; PCP Physician Assistant; Visit Provider Orthopaedic Surgery
PROC: 0RQJ0ZZ Repair Right Shoulder Joint, Open Approach (ICD-10-PCS; CPT 23472; principal; 2019-05-07 10:00)
DX: M19.011 Primary osteoarthritis, right shoulder (principal); I10 Essential (primary) hypertension; F32.9 Major depressive disorder, single episode, unspecified; E03.9 Hypothyroidism, unspecified; M65.811 Other synovitis and tenosynovitis, right shoulder; M25.711 Osteophyte, right shoulder; Z87.891 Personal history of nicotine dependence
CPT/HCPCS: 36415; 64450; 73030; 85027; 97116; 97161; 97165; 97530; 97535; C1776; J1100; J1200; J2250; J2405; J2704; J3010

== ENCOUNTER → 2019-11-10 09:46 | Outpatient (CLI) | payer OTHER, SELFPAY ==
[2019-05-07 14:15] VITALS: BMI 34.9
[2019-11-10 10:17] LABS: Add Manual Diff / Slide Review NO; Basophils Absolute Auto 100 /uL (0-100); Basophils Percent Auto 1.1 % (0-2); Eosinophils Absolute Auto 300 /uL (0-450); Eosinophils Percent Auto 4.6 % (2-4); Hematocrit 41.5 % (36-46); Hemoglobin 14.3 g/dL (12.0-16.0); Lymphocytes Absolute Auto 1800 /uL (1100-4500); Mean Corpuscular HGB Conc 34.4 % (30-36); Mean Corpuscular Hemoglobin 31.5 PG (26-34); Mean Corpuscular Volume 91.4 fL (80-100); Monocytes Absolute Auto 500 /uL (0-900); Monocytes Percent Auto 7.2 % (3-14); Neutrophils Absolute Auto 4000 /uL (1500-7000); Neutrophils Percent Auto 60.1 % (50-75); Platelet Count 309 X10^3/uL (150-400); Red Blood Cell Count 4.54 X10^6/uL (4.0-5.2); Red Cell Distribution Width 13.2 % (11.6-14.8); White Blood Cell Count 6.6 X10^3/uL (4.5-11.0)
[2019-11-10 11:18] LABS: Alanine Aminotransferase 23 IU/L (<35); Albumin 4.2 g/dL (3.5-5.0); Albumin Globulin Ratio 1.4 (1.0-2.8); Alkaline Phosphatase 46 U/L (38-126); Aspartate Aminotransferase 24 IU/L (14-36); Bilirubin Total 0.7 mg/dL (0.2-1.3); Blood Urea Nitrogen 15 mg/dL (7-17); Calcium 9.8 mg/dL (8.4-10.2); Carbon Dioxide 28 mmol/L (22-32); Chloride 99 mmol/L (98-107); Cholesterol 234 mg/dL (140-199); Estimated Glomerular Filt Rate > 60.0 mL/min (>60); Glucose 92 mg/dL (80-110); HDL Cholesterol 46 mg/dL (40-60); HEMOLYSIS < 15 (0-50); LDL Cholesterol Calculated 147 mg/dL (<100); Potassium 4.5 mmol/L (3.4-5.1); Sodium 136 mmol/L (137-145); Total Protein 7.2 g/dL (6.3-8.2); Triglycerides 204 mg/dL (35-150)
[2019-11-10 11:44] LABS: TSH w/ Reflex to FT4 2.43 uIU/mL (0.47-4.68)
== END ==
PROVIDERS: PCP Physician Assistant; Visit Provider Physician Assistant
DX: E78.5 Hyperlipidemia, unspecified (principal); K21.0 Gastro-esophageal reflux disease with esophagitis; E03.9 Hypothyroidism, unspecified; I10 Essential (primary) hypertension
CPT/HCPCS: 36415; 80053; 80061; 84443; 85025

== ENCOUNTER → 2019-11-16 13:54 | Outpatient (CLI) | payer OTHER, SELFPAY ==
[2019-05-07 14:15] VITALS: BMI 34.9
--- NOTE | 2019-11-16 | DI.MG.S_ITS ---
BILATERAL DIGITAL SCREENING MAMMOGRAM 3D/2D WITH CAD POST LUMPECTOMY: 11/16/2019 CLINICAL: Routine screening. Personal history of right breast cancer. Family history of breast cancer. Comparison is made to exams dated: 11/12/2018 mammogram, 09/24/2017 mammogram, 08/13/2016 mammogram, and 04/12/2015 mammogram - [facility]. There are scattered fibroglandular elements in both breasts. Current study was also evaluated with a Computer Aided Detection (CAD) system. There are benign post operative findings in the right breast. No significant masses, calcifications, or other findings are seen in either breast. There has been no significant interval change. IMPRESSION: There is no mammographic evidence of malignancy. A 1 year screening mammogram is recommended. This exam was interpreted at Station ID: [id number]. NOTE: For mammograms, a report in lay terms will be sent to the patient. Approximately 15% of breast malignancies will not be visualized mammographically. In the management of a palpable breast mass, a negative mammogram must not discourage biopsy of a clinically suspicious lesion. Electronically Signed By: Keith handley/alisa:11/16/2019 15:00:04 letter sent: Normal Exam ACR BI-RADS Category 2: Benign Finding(s) 3342F
== END ==
PROVIDERS: PCP Physician Assistant; Referring Provider Physician Assistant; Visit Provider Physician Assistant
DX: Z12.31 Encounter for screening mammogram for malignant neoplasm of breast (principal); Z85.3 Personal history of malignant neoplasm of breast; Z80.3 Family history of malignant neoplasm of breast
CPT/HCPCS: 77063; 77067